=== PATIENT | female | born 1985 | race Caucasian/White ===

== ENCOUNTER 2020-02-05 03:13 | Emergency (ER) | payer MEDICAID ==
[~2020-02-05] VITALS: Ht 172.7 cm; Wt 94.2 kg
[~2020-02-05 03:13] MED LIST: DESM0.2T31 PO; FLUO10CA66 PO; LORA-660 PO; MUPI22OI30 TP; MV-M1TAB19 PO; NALT50TA10 PO; OMEG-79 PO; PRAZ1CAP5 PO; SULF1TAB48 PO; ZIPR40CA2 PO; ZIPR80CA2 PO
[2020-02-05 03:16] VITALS: BP 115/65
--- NOTE | 2020-02-05 05:32 | NUR ---
PT HAD TO BE RE-REGISTERED THE SSN WASN'T CORRECT. SEE NEW CHART FOR D\C
== END 2020-02-05 05:38 | disposition home or self-care (01) ==
LOC: ER 03:14
DX: M79.641 Pain in right hand (principal); F12.90 Cannabis use, unspecified, uncomplicated; Z79.2 Long term (current) use of antibiotics; Z79.899 Other long term (current) drug therapy
CPT/HCPCS: 99281; 99282